=== PATIENT | male | born 1950 | race Caucasian/White ===

== ENCOUNTER → 2017-04-12 | Outpatient (CLI) | payer OTHER | LOC: FCPNEURO 20:00 | PROVIDERS: ATTEND Student in an Organized Health Care Education/Training Program | DX: G47.33 Obstructive sleep apnea (adult) (pediatric) (principal) ==

== ENCOUNTER → 2017-08-27 | Outpatient (CLI) | payer OTHER | LOC: FLAB 08:18 | PROVIDERS: ATTEND Family Medicine | DX: M25.562 Pain in left knee (principal) ==